=== PATIENT | female | born 1990 | race Two or more races ===

== ENCOUNTER 2022-01-06 19:08 | Emergency (ER) | payer MEDICAID ==
[~2022-01-06] VITALS: Ht 167.6 cm; Wt 72.6 kg
[2022-01-06 19:15] VITALS: BP 105/75
[2022-01-06 21:03] LABS: Urine Bacteria FEW /hpf (None Seen); Urine Blood Negative /uL (Negative); Urine Specific Gravity 1.004 (1.001-1.035); Urine WBC 15 /hpf (0 - 5)
[2022-01-06 22:06] LABS: Basophils # (auto) 0.1 10 ^3/uL (0-0.2); Basophils % (auto) 1.2 % (0.0-2.0); Eosinophils # (auto) 0.2 10 ^3/uL (0-0.8); Eosinophils % (auto) 2.2 % (0.0-7.0); Hemoglobin 14.6 g/dL (12.2-16.2); Lymphocytes # (auto) 2.5 10 ^3/uL (0.4-5.4); Lymphocytes % (auto) 36.8 % (10.0-50.0); Mean Corpuscular Hgb Conc. 32.4 g/dL (32.0-36.0); Mean Corpuscular Volume 89.5 fL (80.0-100.0); Monocytes # (auto) 0.4 10 ^3/uL (0-1.3); Monocytes % (auto) 5.9 % (0.0-12.0); Neutrophils # (auto) 3.7 10 ^3/uL (1.6-8.6); Neutrophils % (auto) 53.9 % (37.0-80.0); Red Blood Cells 5.03 10^6/uL (4.0-5.20); Red Cell Distribution Width 13.4 % (11.8-14.3); White Blood Cell 6.9 10^3/uL (4.4-10.8)
[2022-01-06 22:26] LABS: Albumin 4.6 g/dL (3.4-5.0); BUN/Creatinine Ratio 9.8; Calcium 9.2 mg/dL (8.5-10.1); Magnesium 2.1 mg/dL (1.6-2.6); Potassium 3.8 mmol/L (3.5-5.1)
[2022-01-06 22:29] LABS: Bilirubin, Total 0.5 mg/dL (0.2-1.0); Total Protein 7.8 g/dL (6.4-8.2)
[2022-01-06] MEDS ORDERED: CEPH-509 PO ×2 (22:53→23:00)
== END 2022-01-06 23:00 | disposition home or self-care (01) ==
LOC: ER 19:08
DX: R42 Dizziness and giddiness (principal); N39.0 Urinary tract infection, site not specified
CPT/HCPCS: 36415; 80053; 81001; 81025; 83735; 85025; 93005

== ENCOUNTER → 2024-11-09 | Day surgery (SDC) | payer MEDICAID ==
[2024-11-06 10:40] LABS: Basophils # (auto) 0 10 ^3/uL (0-0.2); Basophils % (auto) 0.8 % (0.0-2.0); Eosinophils # (auto) 0.1 10 ^3/uL (0-0.8); Eosinophils % (auto) 1.1 % (0.0-7.0); Hematocrit 44.6 % (36.0-46.0); Lymphocytes # (auto) 1.9 10 ^3/uL (0.4-5.4); Lymphocytes % (auto) 31.9 % (10.0-50.0); Mean Corpuscular Hemoglobin 30.4 pg (28.0-32.0); Mean Corpuscular Hgb Conc. 33.6 g/dL (32.0-36.0); Mean Corpuscular Volume 90.3 fL (80.0-100.0); Monocytes # (auto) 0.4 10 ^3/uL (0-1.3); Monocytes % (auto) 7.2 % (0.0-12.0); Neutrophils # (auto) 3.5 10 ^3/uL (1.6-8.6); Nucleated Red Blood Cells % 0.1 %; Platelet Count (auto) 219 10^3/uL (140-450); Red Blood Cells 4.93 10^6/uL (4.0-5.20); Red Cell Distribution Width 13.7 % (11.8-14.3)
[2024-11-06 10:50] LABS: Urine Bacteria FEW /hpf (None Seen); Urine Blood Negative /uL (Negative); Urine Clarity Turbid (Clear); Urine Color Yellow (Yellow); Urine Mucus FEW (None Seen); Urine Protein, UAD Negative (Negative); Urine Specific Gravity 1.024 (1.001-1.035); Urine Squamous Epithelial Cell FEW /hpf (<5); Urine Urobilinogen Normal (Negative); Urine WBC 9 /HPF (0-5); Urine pH 5.5 (5.0-9.0)
[2024-11-06 11:01] LABS: INR 1.05 (0.9-1.15); Partial Thromboplastin Time 29.6 SEC (24.5-34.5); Prothrombin Time 11.1 sec (9.3-11.8)
[2024-11-06 11:13] LABS: Alanine Aminotransferase 32 U/L (7-40); Alkaline Phosphatase 71 U/L (46-116); Anion Gap 7 (5-15); Aspartate Aminotransferase 19 U/L (13-40); Calcium 9.8 mg/dL (8.7-10.4); Carbon Dioxide 30 mmol/L (20-31); Chloride 103 mmol/L (98-107); Glucose 79 mg/dL (74-106); Potassium 4.1 mmol/L (3.5-5.1); Sodium 140 mmol/L (136-145); Total Protein 7.4 g/dL (5.7-8.2)
[2024-11-06 11:14] LABS: Bilirubin, Total 0.6 mg/dL (0.2-1.0)
[2024-11-06 11:20] LABS: Albumin 4.9 g/dL (3.2-4.8); Blood Urea Nitrogen 6 mg/dL (9-23)
--- NOTE | 2024-11-06 13:32 | DVHHP ---
ADMIT DATE: 11/09/2024 CHIEF COMPLAINT: Desires removal of IUD and bilateral tubal ligation. HISTORY OF PRESENT ILLNESS: The patient is a 34-year-old 3, para 3, admitted for D and C, hysteroscopy, removal of IUD, and bilateral tubal ligation. The patient was informed of possibility of failure with removal of IUD. IUD is embedded. Also, she was advised of failure rate with tubal sterilization, use of Filshie clips. All questions answered. The patient wishes to proceed with planned procedure. PAST MEDICAL HISTORY: None. PAST SURGICAL HISTORY: . SOCIAL HISTORY: None. FAMILY HISTORY: None. OBSTETRIC AND GYNECOLOGIC HISTORY: Two normal vaginal delivery. One cesarian section. ALLERGIES: No known drug allergies. REVIEW OF SYSTEMS: Consistent with HPI. PHYSICAL EXAMINATION: VITAL SIGNS: Stable, afebrile. HEENT: Within normal limits. CARDIOVASCULAR: Regular rate and rhythm. LUNGS: Clear to auscultation. BREAST: Symmetrical, no masses. ABDOMEN: Soft, nontender. PELVIC EXAM: External genitalia within normal limits. Vagina normal. Cervix grossly normal. Uterus 8-week size. Adnexa nonpalpable. EXTREMITIES: No clubbing, cyanosis, or edema. IMPRESSION: * Multiparity, desires tubal sterilization. * Desires removal of IUD, planned D and C, hysteroscopy, removal of IUD, and performance of bilateral tubal ligation, use of Filshie clips. Informed consent obtained. Risks and complications of surgery including infection, bleeding, hematoma formation, injury to bowel, bladder, surrounding organ, possibility of DVT, pulmonary embolism, risk of anesthesia discussed with the patient. Options reviewed. All questions answered. Failure rate with both procedure discussed with the patient. The patient wishes to proceed with planned procedure. The patient fully understands. DO JOSE Anguiano TID: [id number] RECEIPT: [id number]
[~2024-11-09] VITALS: Ht 167.6 cm; Wt 80.3 kg
[~2024-11-09] MED LIST: HYDR-4072 PO; HYDROmorphone HCL 2 MG/ML VL/or syr IV PRN; HYDROmorphone HCL 2 MG/ML VL/or syr ONE; IBUP-1456 PO; KETAMINE 50mg/ML 1ml syringe ONE; KETOROLAC TROMETH 30 MG/ML 1ML VIAL IV ONE; LACTATED RINGER'S 1,000 ML IV SCH; LIDOCAINE 1% INJ PF 5ML AMP ONE; LIDOCAINE HCL 2% TOP JELLY 5ML TOP ONE; METOCLOPRAMIDE HCL 5MG/ml INJ 2ml VIAL IV ONE; MIDAZOLAM HCL 2MG/2ML 2ml VIAL (1mg/ml) ONE; MORPHINE SULFATE 4 MG/ML SYR/VIAL IV PRN; MORPHINE SULFATE INJ 2 MG/ml SYRG IV PRN; ONDANSETRON HCL 4 MG/2 ML VIAL IV PRN; PROPOFOL 10 MG/ML 20 ML IV ONE; SODIUM CHLORIDE LOCK 10 ML ONE; ZOFR4T PO; fentaNYL CITRATE 100 MCG/2 ML VL IV PRN; fentaNYL CITRATE 100 MCG/2 ML VL ONE
[2024-11-09] MEDS: ceFAZolin 2 GM/D5W50ml 50 ML IV ONE (07:10)
[2024-11-09] MEDS: LIDOCAINE W/ EPINEPHRINE 1% 20ML VIAL ONE (07:41)
[2024-11-09] MEDS: BUPIVACAINE 0.5% MPF INJ 30ML SDV IJ ONE (07:41)
[2024-11-09 07:48] VITALS: PULSE 87; RESP 25; TEMP 97.7; O2SAT 100
[2024-11-09 08:45] VITALS: BP 113/68; PULSE 67; RESP 18; O2SAT 98
--- NOTE | 2024-11-09 15:24 | DVHOP2 ---
Operative Report DATE OF OPERATION: 11/09/24 PREOPERATIVE DIAGNOSES: 1. Desires elective tubal sterilization. 2. desitres iud removal POSTOPERATIVE DIAGNOSES: 1. Desires elective tubal sterilization. 2. same SURGEON: Ronald Leo D.O./domenic ANESTHESIOLOGIST: TYPE OF ANESTHESIA : General. CONSENT: The patient was informed of the risks and benefits of the procedure. The patient was informed of the risks and benefits of the procedure. These include but are not limited to , complications of anesthesia, postoperative infection, incomplete relief of symptoms, recurrence of symptoms, damage to blood vessels, nerves and tendons, deep venous thrombosis, pulmonary embolism and possible need for repeat surgery in the future. FINDINGS: Cervix is grossly normal appearing. Uterus is 10 weeks' size. Adnexa nonpalpable. COMPLICATIONS: None. BLOOD PRODUCTS USED: None. PROCEDURES: Laparoscopic placement of Filschi Clips to bilateral tubes,removal of iud PROCEDURE IN DETAIL: The patient was taken to the operating room where she was placed under general anesthesia. The patient was then prepped and draped in the usual sterile manner in the dorsal lithotomy position. The bladder was emptied using a straight catheter. Examination under anesthesia revealed the above findings. A weighted speculum was placed in the vagina. The anterior lip of the cervix was grasped using single-tooth tenaculum. Cervix was dilated. Uterus sounded to 10 cm. iud string seen and iud removed. HUMI catheter was placed. Attention was then turned to the abdomen where a Veress needle was introduced. Abdomen was distended with 3L of CO2 gas. Using Visiport, abdomen was entered under direct visualization. Survey of abdominal cavity revealed normal finding. A 8 mm trocar was placed into the suprapubic region. Filshie clip was then loaded on the right tube as well as the left. No bleeding was noted. All the instruments were removed from the abdomen and pelvis. CO2 gas released. Incisional ports were closed using #4-0 Vicryl and dorota for the larger port. The patient tolerated the procedure well. All instruments were removed from the patient's cervix. The patient was taken to the recovery room in a stable condition. ESTIMATED BLOOD LOSS: 20 mL Visit Coding OBGYN Date of Service: November 09, 2024 Billing Provider: RONALD LEO DO WALNUT DEHYDRATOR OPERATOR Common Visit Codes: 31183-NWPHVYG INP/OBS CARE (HIGH) WALNUT DEHYDRATOR OPERATOR Procedure Codes: 08215-OTR.SURG:W/REM ADNEXAL STRUCT RONALD LEO DO November 09, 2024 15:24
--- NOTE | 2024-11-09 15:25 | POSTOP ---
Post-Operative Note Post-Operative Note Preop Diagnosis desires tubal and removal of iud Postop Diagnosis: desirestubal Operation performed same Specimen iud Anesthesia: General Anesthesiologist: miguel Blood Loss(fluid mgmt) 20ml Surgeon Robyn Leo Trip Rider domenic Implant filschie Complications & Mgmt none Date 11/09/24 Time 15:24 Visit Coding OBGYN Date of Service: November 09, 2024 Billing Provider: ROBYN LEO DO PHARMACY MESSENGER Common Visit Codes: 60091-EOVMLSE INP/OBS CARE (HIGH) PHARMACY MESSENGER Procedure Codes: 94710-VIT.SURG:W/REM ADNEXAL STRUCT ROBYN LEO DO November 09, 2024 15:25
--- NOTE | 2024-11-09 15:26 | DVHDS2 ---
Physician Discharge Progress N Final Diagnosis: desirestubal desires iud removal Operations or Procedures: Operations or Procedures removal of iud and tubal ligation Condition on Discharge: Good Disposition: Home Discharge Instructions: Diet: Regular Activity: Light activity Follow Up/Referral: 1wk Medications: monse samuel Follow Up Care: Specialist: 1w Discharge Statement: "Patient was advised to return to the ER or call 911 if any headaches, dizziness, shortness of breath, chest pain, abdominal pain, bleeding, fevers, or worsening of medical condition. Patient was counseled about treatment plan, medications, possible side effects, patient�verbalized understanding. All questions were answered to the best of my ability. This discharge took greater then 30 minutes in planning, reviewing documentation, counseling the patient, and discussing with other team members." Visit Coding OBGYN Date of Service: November 09, 2024 Billing Provider: RONALD CONKLIN DO HARDWARE DEVELOPER Common Visit Codes: 08323-IFI/OBS DISCH DAY >30MIN RONALD CONKLIN DO November 09, 2024 15:26
== END | disposition home or self-care (01) ==
LOC: SUR 06:12
PROVIDERS: ATTEND Obstetrics & Gynecology
DX: Z30.2 Encounter for sterilization (principal); Z30.432 Encounter for removal of intrauterine contraceptive device; Z90.49 Acquired absence of other specified parts of digestive tract; Z98.890 Other specified postprocedural states
CPT/HCPCS: 36415; 58301; 58671; 80053; 81001; 81025; 84702; 85025; 85610; 85730; 86850; 86900; 86901; 88300; A4264; J0690; J1171; J2250; J2704; J3010; J3490